=== PATIENT | male | born 1980 | race Asian ===

== ENCOUNTER 2016-08-14 17:18 | Emergency (ER) | payer BC, OTHER ==
[2016-08-14] MEDS ORDERED: SODIUM CHLORIDE 0.9% 1000 ML INFUS.BAG IV ONE (17:26)
[2016-08-14] MEDS ORDERED: KETOROLAC TROMETHAMINE 30 MG/1 ML VIAL IVPUSH ONE (17:27)
--- NOTE | 2016-08-14 17:31 | PDOC ---
[id number] 100 08/14/16 17:29 08/14/16 17:29 08/14/16 17:29 08/14/16 17:29 08/14/16 17:29 <Joan Mansfield - Last Filed: 08/15/16 01:13> ED Treatment Course - LABORATORY CBC & Chemistry Diagram: 08/14/16 18:00 08/14/16 18:00 - ADDITIONAL ORDERS Additional order review: 08/14/16 18:00 RBC 5.24 MCV 84.0 MCHC 33.7 RDW 13.6 MPV 8.9 Neutrophils % 65.3 Lymphocytes % 20.6 Monocytes % 8.7 Eosinophils % 4.5 Basophils % 0.9 - RADIOLOGY Radiology Studies Ordered: Category Date Time Status SPIRAL- RENAL-STONE CT [CT] Stat CT Scan 08/14/16 18:23 Ordered - Medications Given in the ED: ED Medications Discontinued Medications Generic Name Dose Route Start Last Admin Trade Name Freq PRN Reason Stop Dose Admin Ketorolac Tromethamine 30 mg 08/14/16 17:27 08/14/16 18:02 Toradol Injection - IVPUSH 08/14/16 17:28 30 mg ONCE ONE Administration Sodium Chloride 1,000 ml 08/14/16 17:26 08/14/16 18:02 Normal Saline - IV 08/14/16 17:27 1,000 ml ONCE ONE Administration <Joan Mansfield - Last Filed: 08/15/16 01:13> - LABORATORY CBC & Chemistry Diagram: 08/14/16 18:00 08/14/16 18:00 <Keyon Connolly - Last Filed: 08/29/16 12:24> Progress Note - Progress Note Progress Note: brief triage assessment 36 year old man with no prior medical hx except migraines presents with right flank pain since yesterday radiating to the groin and testicle positive dysuria no fever, no vomiting no prior hx of kidney stones exam with discomfort right flank plan labs urine iv fluids toradol inside for further eval <Keyon Connolly - Last Filed: 08/29/16 12:24> *DC/Admit/Observation/Transfer <Joan Mansfield - Last Filed: 08/15/16 01:13> <Keyon Connolly - Last Filed: 08/29/16 12:24> Diagnosis at time of Disposition: Right flank pain - Discharge Dispostion Disposition: HOME Condition at time of disposition: Stable - Prescriptions Prescriptions: Tamsulosin HCl [Flomax] 0.4 mg PO DAILY #7 capsule Ketorolac Tromethamine [Toradol] 10 mg PO Q6H PRN #12 tablet MDD 4 PRN Reason: Pain - Referrals Referrals: Parveen Cee MD [Primary Care Provider] - - Patient Instructions Printed Discharge Instructions: DI for Kidney Stones Additional Instructions: please pharmacy picking technician your prescriptions at your pharmacy If your symptoms persist,please follow up with the urologist and further intervention
[2016-08-14 17:32] VITALS: BP 123/79; PULSE 66; TEMP 98; BMI 25.1
[2016-08-14] MEDS ORDERED: KETOROLAC TROMETHAMINE 30 MG/1 ML VIAL ONE (17:59)
[2016-08-14 18:03] LABS: BASOPHIL 0.9 % (0-2.0); EOSINOPHIL 4.5 % (0-4.5); MCH 28.3 pg (25.7-33.7); MCHC 33.7 g/dl (32.0-35.9); MEAN PLT VOLUME 8.9 fl (7.5-11.1); NEUTROPHILS 65.3 % (42.8-82.8); PLATELET COUNT 157 K/MM3 (134-434); RDW 13.6 % (11.9-15.9); WHITE BLOOD COUNT 6.4 K/mm3 (4.0-10.0)
[2016-08-14 18:06] LABS: URINE APPEARANCE CLEAR; URINE BILIRUBIN NEGATIVE (NEGATIVE); URINE COLOR LTYELLOW; URINE GLUCOSE (UA) NEGATIVE (NEGATIVE); URINE KETONE NEGATIVE (NEGATIVE); URINE LEUK ESTERASE NEGATIVE (NEGATIVE); URINE NITRITE NEGATIVE (NEGATIVE); URINE PROTEIN NEGATIVE (NEGATIVE); URINE UROBILINOGEN NEGATIVE E.U./dl (0.2-1.0)
[2016-08-14 18:27] LABS: ALBUMIN 4.6 g/dl (3.4-5.0); BILIRUBIN,TOTAL 0.5 mg/dL (0.2-1.0); CO2 28 mmol/L (21-32); GLUCOSE,RANDOM 84 mg/dL (74-106); SGOT/AST 46 U/L (15-37); SGPT/ALT 52 U/L (12-78); TOT PROT 7.5 g/dl (6.4-8.2)
[2016-08-14 18:31] LABS: URINE BLOOD 3+ (NEGATIVE)
--- NOTE | 2016-08-14 18:31 | PDOC ---
History of Present Illness - General History Source: Patient Exam Limitations: No Limitations - History of Present Illness Initial Comments: 08/14/16 18:47 The patient is a 36 year old male, with a significant past medical history of migraines, who presents to the emergency department with right flank pain, dysuria and urgency for the past couple of days. He reports that he has been taking Advil for his pain during this time frame with minimal relief of his symptoms. He describes his flank pain as moderate, with radiation down his right groin, without any modifying factors. He states that he recently arrived from [place], when the pain started while on the plane ride back. The patient denies chest pain, shortness of breath, headache and dizziness. Denies fever, chills, nausea, vomit, diarrhea and constipation. Denies frequency and hematuria. Allergies: None Past surgical history: None reported Social history: Cigarette use (1 daily). No alcohol or drug use reported <Parminder Walton - Last Filed: 08/14/16 19:00> <Joan Mansfield - Last Filed: 08/14/16 22:24> - General Chief Complaint: Pain Stated Complaint: KIDNEY PAIN Time Seen by Provider: 08/14/16 17:21 Past History <Parminder Walton - Last Filed: 08/14/16 19:00> - Past Medical History Other medical history: migraines - Psycho/Social/Smoking Cessation Hx Anxiety: No Suicidal Ideation: No Smoking History: Never smoked Have you smoked in the past 12 months: No Information on smoking cessation initiated: No Hx Alcohol Use: No Drug/Substance Use Hx: No Substance Use Type: None <Joan Mansfield - Last Filed: 08/14/16 22:24> - Past Medical History Allergies/Adverse Reactions: Allergies Allergy/AdvReac Type Severity Reaction Status Date / Time No Known Allergies Allergy Verified 08/14/16 17:28 Home Medications: Ambulatory Orders Ketorolac Tromethamine [Toradol] 10 mg PO Q6H PRN #12 tablet MDD 4 08/14/16 Tamsulosin HCl [Flomax] 0.4 mg PO DAILY #7 capsule 08/14/16 Review of Systems - Review of Systems Able to Perform ROS?: Yes Comments:: 08/14/16 18:49 GENERAL/CONSTITUTIONAL: No fever or chills. No weakness. HEAD, EYES, EARS, NOSE AND THROAT: No change in vision. No ear pain or discharge. No sore throat. CARDIOVASCULAR: No chest pain or shortness of breath RESPIRATORY: No cough, wheezing, or hemoptysis. GASTROINTESTINAL: No nausea, vomiting, diarrhea or constipation. GENITOURINARY: +Right flank pain, dysuria and urgency. No hematuria. MUSCULOSKELETAL: No joint or muscle swelling or pain. No neck or back pain. SKIN: No rash NEUROLOGIC: No headache, vertigo, loss of consciousness, or change in strength/ sensation. ENDOCRINE: No increased thirst. No abnormal weight change HEMATOLOGIC/LYMPHATIC: No anemia, easy bleeding, or history of blood clots. ALLERGIC/IMMUNOLOGIC: No hives or skin allergy. <Parminder Walton - Last Filed: 08/14/16 19:00> *Physical Exam - Vital Signs Last Vital Signs Temp Pulse Resp BP Pulse Ox 98.0 F 66 18 123/79 100 08/14/16 17:29 08/14/16 17:29 08/14/16 17:29 08/14/16 17:29 08/14/16 17:29 - Physical Exam Comments: 08/14/16 18:49 GENERAL: Awake, alert, and fully oriented, in no acute distress HEAD: No signs of trauma, normocephalic, atraumatic EYES: PERRLA, EOMI, sclera anicteric, conjunctiva clear ENT: Auricles normal inspection, hearing grossly normal, nares patent, oropharynx clear without exudates. Moist mucosa NECK: Normal ROM, supple, no lymphadenopathy, JVD, or masses LUNGS: No distress, speaks full sentences, clear to auscultation bilaterally HEART: Regular rate and rhythm, normal S1 and S2, no murmurs, rubs or gallops, peripheral pulses normal and equal bilaterally. ABDOMEN: +Right flank tenderness. Soft, normoactive bowel sounds. No guarding, no rebound. No masses EXTREMITIES: Normal inspection, Normal range of motion, no edema. No clubbing or cyanosis. NEUROLOGICAL: Cranial nerves II through XII grossly intact. Normal speech, normal gait, no focal sensorimotor deficits SKIN: Warm, Dry, normal turgor, no rashes or lesions noted. <Parminder Walton - Last Filed: 08/14/16 19:00> - Vital Signs Last Vital Signs Temp Pulse Resp BP Pulse Ox 98.0 F 66 18 123/79 100 08/14/16 17:29 08/14/16 17:29 08/14/16 17:29 08/14/16 17:29 08/14/16 17:29 <Joan Mansfield - Last Filed: 08/14/16 22:24> ED Treatment Course - LABORATORY CBC & Chemistry Diagram: 08/14/16 18:00 08/14/16 18:00 - ADDITIONAL ORDERS Additional order review: Laboratory Results 08/14/16 18:00 Urine Color Ltyellow Urine Appearance Clear Urine pH 6.0 Ur Specific Hankinson 1.018 Urine Protein Negative Urine Glucose (UA) Negative Urine Ketones Negative Urine Blood 3+ H Urine Nitrite Negative Urine Bilirubin Negative Urine Urobilinogen Negative Ur Leukocyte Esterase Negative Urine RBC 705 Urine WBC 2 Urine Mucus Rare 08/14/16 18:00 RBC 5.24 MCV 84.0 MCHC 33.7 RDW 13.6 MPV 8.9 Neutrophils % 65.3 Lymphocytes % 20.6 Monocytes % 8.7 Eosinophils % 4.5 Basophils % 0.9 - RADIOLOGY Radiograph Interpretation: 08/14/16 19:01 CT Renal Reviewed by: Dr. Sandoval Pelletier Impression: Large right paraesophageal mass. 4 x 5 mm right UVJ calculus with mild hydronephrosis. - Medications Given in the ED: ED Medications Discontinued Medications Generic Name Dose Route Start Last Admin Trade Name Freq PRN Reason Stop Dose Admin Ketorolac Tromethamine 30 mg 08/14/16 17:27 08/14/16 18:02 Toradol Injection - IVPUSH 08/14/16 17:28 30 mg ONCE ONE Administration Sodium Chloride 1,000 ml 08/14/16 17:26 08/14/16 18:02 Normal Saline - IV 08/14/16 17:27 1,000 ml ONCE ONE Administration <Parminder Walton - Last Filed: 08/14/16 19:00> - LABORATORY CBC & Chemistry Diagram: 08/14/16 18:00 08/14/16 18:00 - ADDITIONAL ORDERS Additional order review: 08/14/16 18:00 RBC 5.24 MCV 84.0 MCHC 33.7 RDW 13.6 MPV 8.9 Neutrophils % 65.3 Lymphocytes % 20.6 Monocytes % 8.7 Eosinophils % 4.5 Basophils % 0.9 - RADIOLOGY Radiology Studies Ordered: Category Date Time Status SPIRAL- RENAL-STONE CT [CT] Stat CT Scan 08/14/16 18:23 Ordered - Medications Given in the ED: ED Medications Discontinued Medications Generic Name Dose Route Start Last Admin Trade Name Avila PRN Reason Stop Dose Admin Ketorolac Tromethamine 30 mg 08/14/16 17:27 08/14/16 18:02 Toradol Injection - IVPUSH 08/14/16 17:28 30 mg ONCE ONE Administration Sodium Chloride 1,000 ml 08/14/16 17:26 08/14/16 18:02 Normal Saline - IV 08/14/16 17:27 1,000 ml ONCE ONE Administration <Joan Mansfield - Last Filed: 08/14/16 22:24> Medical Decision Making - Medical Decision Making 08/14/16 19:20 36 yo male dev rt flank pain while on flight back from [place] -no fever ,no chills,no vomiting,no hematuria -benign abd exam -pt received toradol and IVf , pain free now review of labs - cbc and chemistries are unremarkable, UA >700 rbc, no evidence for uti -ct scan rt UVJ stone 4 x 5 mm, mild hydronephrosis -incidental findings of paraesophageal mass -spoke to Dr Pelletier and will get ct scan chest w constrast with the understanding that this will be read later , none emergent RX flomax/toradol and urology follow 08/14/16 22:24 <Joan Mnasfield - Last Filed: 08/14/16 22:24> *DC/Admit/Observation/Transfer - Attestations Scribe Attestion: 08/14/16 18:49 Documentation prepared by Parminder Walton, acting as caregivers non medical for Joan Mansfield MD. <Parminder Walton - Last Filed: 08/14/16 19:00> <Joan Mansfield - Last Filed: 08/14/16 22:24> Diagnosis at time of Disposition: Kidney stone on right side - Discharge Dispostion Disposition: HOME Condition at time of disposition: Stable - Prescriptions Prescriptions: Tamsulosin HCl [Flomax] 0.4 mg PO DAILY #7 capsule Ketorolac Tromethamine [Toradol] 10 mg PO Q6H PRN #12 tablet MDD 4 PRN Reason: Pain - Referrals Referrals: Parveen Cee MD [Primary Care Provider] - - Patient Instructions Printed Discharge Instructions: DI for Kidney Stones Additional Instructions: please bead picker your prescriptions at your pharmacy If your symptoms persist,please follow up with the urologist and further intervention - Post Discharge Activity
[2016-08-14 18:33] LABS: URINE MUCUS RARE; URINE RBC 705 /hpf (0-3); URINE WBC 2 /hpf (3-5)
[2016-08-14 18:50] LABS: ALK PHOS 70 U/L (45-117); ANION GAP 10 (8-16)
== END 2016-08-14 19:49 | disposition home or self-care (01) ==
LOC: JER 17:18
PROC: 3E0333Z Introduction of Anti-inflammatory into Peripheral Vein, Percutaneous Approach (ICD-10-PCS; principal; 2016-08-14)
DX: N20.0 Calculus of kidney (principal)
CPT/HCPCS: 36415; 71260-TC; 74176; 80053; 81003; 81015; 85025; 87086; 99281-25

== ENCOUNTER 2020-02-29 13:52 | Emergency (ER) | payer OTHER ==
--- NOTE | 2020-02-29 14:42 | TELE ---
HPI Do you have fever,cough or shortness of breath?: No - General Reason For Visit: COVID TESTING History Source: Patient Exam Limitations: No Limitations - History of Present Illness 02/29/20 14:38 Patient is a 39-year-old male who participated in a virtual urgent care visit for routine COVID testing for upcoming travel. The patient states he is traveling this upcoming and is required to have testing. He denies any recent travel outside the [facility] within the last 30 days or outside of [facility] within the last 14. He denies any known COVID contacts. He denies any fevers, shortness of breath, chills, body aches, loss of taste, cough or any other symptoms. Past History - Medical History Allergies/Adverse Reactions: Allergies Allergy/AdvReac Type Severity Reaction Status Date / Time No Known Allergies Allergy Verified 08/14/16 17:28 Home Medications: Ambulatory Orders Ketorolac Tromethamine [Toradol] 10 mg PO Q6H PRN #12 tablet MDD 4 08/14/16 Tamsulosin HCl [Flomax] 0.4 mg PO DAILY #7 capsule 08/14/16 - Psycho-Social/Smoking History Smoking History: Never smoked Have you smoked in the past 12 months: No Review of Systems - Review of Systems Comments:: 02/29/20 14:40 - Review of Systems Able to Perform ROS?: Yes Constitutional: No: Fever, Chills, Loss of Appetite, Night Sweats, Weakness; routine COVID testing HEENTM: No: Eye Pain, Vision changes, Ear Pain, Throat Pain, Throat Swelling, Mouth Pain, Difficulty Swallowing Respiratory: No: Cough, Shortness of Breath, Wheezing, Sputum Production Cardiac (ROS): No: Chest Pain, Chest Tightness, Palpitations, Irregular Heart Beat, Edema ABD/GI: No: Nausea, Vomiting, Abdominal Pain, Diarrhea : No Dysuria, No Hematuria, No Frequency, No Urgency Musculoskeletal: No: Muscle Pain, Back Pain, Joint Pain, Muscle Weakness, Neck Pain Integumentary: No: Lesions, Rash Neurological: No: Headache, Numbness, Tingling, Weakness, Speech Difficulties *Physical Exam - Physical Exam 02/29/20 14:40 - Physical Exam General Appearance: Nourished, Appropriately Dressed, No Distress HEENT: EOMI, Normal Voice, Hearing Grossly Normal Neck: No Decreased range of motion Respiratory/Chest: Normal chest excursion appreciated, No Accessory Muscle Use Gastrointestinal/Abdominal: No distention Musculoskeletal: Normal Inspection Integumentary: Normal Color, Dry. No Rash Neurologic: gun numberer II-XII NML intact, Fully Oriented, Alert, Normal Mood/Affect, Normal Response - Medical Decision Making 02/29/20 14:40 Assessment: Patient is a 39-year-old male who participated in a virtual urgent care visit for routine COVID testing for upcoming travel. Plan: -COVID swab ordered -COVID counseling given, isolation precautions reviewed -Patient has been instructed to proceed to the [facility] for COVID testing -Patient understands and agrees with this treatment plan Discharge Diagnosis at time of Disposition: Counseled about COVID-19 virus infection - Referrals Follow-up Referral(s): Rohit Noriega MD [Primary Care Provider] - - Patient Instructions Discharge Instructions: [facility]-Coronavirus Instructions, [facility] COVID-19 Isolation Protocol Additional Discharge Instructions: You were seen via a telehealth visit and tested for COVID today. You should follow isolation precautions as per [facility] guidelines. Thank you for participating in our telehealth medicine program. If you have any worsening symptoms such as high fever, shaking chills, profuse vomiting or any other worsening symptoms you should go to your local emergency department immediately or follow up with your primary care doctor immediately. If you become symptomatic: Take Tylenol 650 mg every 6 hours as needed for fever or pain. You may take Robitussin or other [id number] cough syrup. Follow the dosing instructions on the bottle. Warm tea, honey, and salt water gargles may help your symptoms. Please take precautions and self quarantine for 2 weeks and follow-up with your primary care doctor and the Department of Health. Return to the nearest emergency department for shortness of breath, difficulty breathing, chest pain, or if you have any changes in your symptoms. - Discharge Disposition: HOME Condition at time of Disposition: Stable
== END 2020-02-29 14:42 | disposition home or self-care (01) ==
LOC: JVIRT 13:52
DX: Z11.59 Encounter for screening for other viral diseases (principal)
CPT/HCPCS: Q3014-GT; U0003